=== PATIENT | male | born 1940 | race Caucasian/White ===

== ENCOUNTER 2016-10-31 08:46 | Emergency (ER) | payer MEDICARE, OTHER ==
[~2016-10-31] VITALS: Ht 157.5 cm; Wt 63.6 kg
[~2016-10-31 08:46] MED LIST: METF500T4 PO
[2016-10-31 08:53] VITALS: BP 155/84; PULSE 77; RESP 16; O2SAT 97
[2016-10-31] MEDS ORDERED: Fluorescein 0.6 mg Ophthalmic Strip ONE (09:05)
[2016-10-31] MEDS ORDERED: 0.9% Sodium Chloride Inhalation Solution ONE (09:05)
--- NOTE | 2016-10-31 09:09 | ED.REPORT ---
HPI-Eye Problem Date of Service Oct 31, 2016 ED Provider: Minh José DO A 76 year old male with a history of type II diabetes mellitus, previous NC, and COPD presents to the ED with right eye visual disturbances that initially began 3 days ago. The patient describes a visual disturbance in his upper right vision that looks like a "blurry cloud" in his vision. He states that unilateral superior visual disturbance moves solely within the horizon of his right visual field. He also currently endorses clear discharge and crusting around the affected eye. Patient denies any recent injuries or eye exposure. He denies any pain in his eye. His left eye has been asymptomatic. The patient does not currently take any blood thinners. He is not currently following by an medication administration professional. Visual acuity in triage R -20/50 L - 30/50 Nursing Notes Stated Complaint: RIGHT EYE Chief Complaint: Eye Nursing Notes Reviewed: Yes Allergies: Coded Allergies: No Known Allergies (Verified Allergy, Unknown, 10/31/16) Scheduled Metformin (Metformin) 500 Mg Tablet 500 MG PO BIDWM General Time Seen by MD: 09:08 Chief Complaint Right eye affected Hx Obtained From: Patient Arrived By: Walk-in Sudden in Onset?: No Onset Occurred: 3 days ago Symptom Duration: Since onset Progression Since Onset: Constant Pertinent Negative: Pt denies other symptoms Recent Healthcare: No recent doctor visit, No recent hospitalization Risk-Eye Problem Eye Injury Risk Stratification Diabetes mellitus Past Medical History Past Medical History NC DM Hernias - seven total, inguinal and abdominal wall COPD Kidney stones Denies: Stroke Past Surgical History Reports: Cholecystectomy, Inguinal hernia repair (x7) Smoking History Former Smoker Social History Alcohol Use: Denies alcohol use Drug Use: Denies drug use Other Social History: Good social support, , Local resident Ambulatory Status Independent Review of Systems + crusting around the R eye Eyes: Reports: Blurred right, Discharge right, Visual loss right (upper vision) , Denies: Eye pain right Complete sys rev & neg: except as marked. Physical Exam Initial Vital Signs Vital Signs (First) Date Time Temp Pulse Resp B/P Pulse Ox O2 Delivery O2 Flow Rate FiO2 10/31/16 08:53 36.4 77 16 155/84 97 Room Air Initial VS: Reviewed Neck: Supple, Non-tender, Full range of motion Extremities: Vascular intact, Neuro intact, No swelling, No tenderness Psychiatric: Mood/affect normal, Behavior normal, Normal thought content Head / Eyes: Atraumatic, Normocephalic, PERRL, EOMI, No nystagmus, Eyelids NL Cornea/Anterior Chamber: Negative: Fluorescein uptake L..., Fluorescein uptake R..., Hyphema L, Hyphema R, Hypopyon L, Hypopyon R HEAD/EYES: Visual acuity 20/50 - R 30/50 - L Ultrasound- Mobile haziness and thicking in posterior chamber No swelling or edema surround the eye General/Constitutional: Awake, Alert, No acute distress ENT: Atraumatic, Airway patent, Mucous membranes moist, Pharynx NL Skin: Atraumatic, Color NL, No rash, Warm, Dry Neurologic: Oriented X3, Speech NL, No motor deficits, No sensory deficits, CN II - XII intact Respiratory / Chest: Atraumatic, Breath sounds NL, Breath sounds = bilat, No respiratory distress Cardiovascular: Heart rate NL, Regular rhythm, Heart sounds NL Abdomen: Atraumatic, Soft Re-Eval/Medical Decision Med Decision/Clinical Course Concern for either retinal detachment or vitreous hemorrhage. Ophthalmology's consult and the patient will be seen urgently in ophthalmology clinic this morning. Re-Evaluation/Progress : Time of Eval: 09:27 Patient Status: Condition improved Re-Evaluation/Progress Note: Symptoms have improved upon receheck. Bedside US of the right eye is performed. Pt tolerates well. Hazy vitreous is present. Consultation : Referral / Consult Name: CHEN RIVERA MD Consulted With: Sous Chef Call Returned at: 09:47 Irish Moss Bleacher: Will see patient, Will see in office, Agrees with eval, Agrees with plan Note: Discussed patient conditions and current concern for retinal detachment or vitreal hemorrhage. Counseled Regarding: Diagnosis, Need for follow-up, When/why to return to ED Discharge & Departure Primary Impression: Vision loss of right eye Disposition: Home Discharge Condition All VS Reviewed: Yes Condition: Improved Patient Instructions: Blurred Vision (ED) Additional Instructions: Thank you for trusting us with your care this morning. Your emergency department evaluation today including interview and examination are reassuring that there is no emergent cause for concern at this time, however , a clear cause of your symptoms was not identified at this time, so please follow up with the referred medication administration professional today at 10:20am for further evaluation. Schedule a follow up appointment with your primary care physician in the next week for a recheck. Please return to the emergency department for any new or worsening conditions including any headache, complete visual loss, facial droop, slurred speech, nausea, vomiting, numbness, weakness or any other concerning symptoms. [facility] Appointment: 10:30am 10/31/16 Address: [address], [place] [address] Referrals: Mohan Garcia MD (PCP) CHEN RIVERA MD Scribe Attestation Portions of this note were transcribed by Angelina Chavez. I, Dr. Thelma Romano, personally performed the history, physical exam and medical decision-making; I reviewed and confirmed the accuracy of the information in the transcribed note. Signed by: Angelina Chavez, 10/31/16. copies to: Mohan Garcia MD; CHEN RIVERA MD, Timothy S DO Oct 31, 2016 09:09 ANGELINA CHAVEZ Oct 31, 2016 09:27
== END 2016-10-31 10:07 | disposition home or self-care (01) ==
LOC: SED 08:46
DX: H54.61 Unqualified visual loss, right eye, normal vision left eye (principal); E11.59 Type 2 diabetes mellitus with other circulatory complications; I25.2 Old myocardial infarction; J44.9 Chronic obstructive pulmonary disease, unspecified; Z87.442 Personal history of urinary calculi; Z90.49 Acquired absence of other specified parts of digestive tract; Z98.890 Other specified postprocedural states; Z79.84 Long term (current) use of oral hypoglycemic drugs; Z87.891 Personal history of nicotine dependence